=== PATIENT | male | born 1980 | race Caucasian/White ===

== ENCOUNTER 2018-07-16 18:45 | Emergency (ER) | payer OTHER ==
[~2018-07-16] VITALS: Ht 193 cm; Wt 112.4 kg
--- NOTE | 2018-07-16 19:05 | NUR ---
Pt to room and directly to imaging, via gurney.
--- NOTE | 2018-07-16 19:20 | NUR ---
EVENTS AND PROMOTIONS ASSISTANTNora, at bedside to evaluate pt.
--- NOTE | 2018-07-16 19:31 | NUR ---
task RN note: pt presents to ED s/p snowboarding accident in which head injury occurred. pt has no memory of fall or incident, report is from parents who are at bedside. pt is awake, alert and oriented to year, situation, place and person. pt was ambulatory after fall. pt speaking in full, clear sentences. neuro intact, full strength noted to all extremities. no drift, equal grasp bilaterally. pupils equal, round and reactive. call light in reach. parents at bedside. awaiting cspine and head ct results at this time. report to primary RN Nereyda.
[2018-07-16 20:08] LABS: BASOPHILS % (AUTO) 0 % (0-1); EOSINOPHILS # (AUTO) 0.04 x10^3/uL (0-0.4); EOSINOPHILS % (AUTO) 0 % (1-7); LYMPHOCYTES # (AUTO) 1.96 x10^3/uL (1-3.4); LYMPHOCYTES % (AUTO) 16 % (22-44); MD NO; MEAN CORPUSCULAR HGB CONC 34.1 g/dL (33.2-36.2); MEAN PLATELET VOLUME 7.7 fL (7.4-10.4); MONOCYTES # (AUTO) 0.54 x10^3/uL (0.2-0.8); MONOCYTES % (AUTO) 5 % (2-9); NEUTROPHILS # (AUTO) 9.49 x10^3/uL (1.8-6.8); NEUTROPHILS % (AUTO) 79 % (42-75); PLATELET COUNT 275 x10^3/uL (130-400); RED BLOOD COUNT 4.83 x10^6/uL (4.38-5.82); RED CELL DISTRIBUTION WIDTH 13.9 % (9.4-14.8)
--- NOTE | 2018-07-16 20:13 | NUR ---
Dr. Nagel at bedside to discuss ED findings and POC. NSG to be coming in for consult.
[2018-07-16 20:19] LABS: INTERNATIONAL NORMALIZED RATIO 0.97 (0.93-1.1); PROTHROMBIN TIME 10.2 Seconds (9.6-11.5)
[2018-07-16 20:25] LABS: ALANINE AMINOTRANSFERASE 32 U/L (12-78); ALBUMIN 4.3 g/dL (3.4-5.0); ANION GAP 5 mmol/L (5-15); CHLORIDE 111 mmol/L (98-107); CREATININE 0.87 mg/dL (0.7-1.3)
[2018-07-16 20:27] LABS: ALKALINE PHOSPHATASE 44 U/L (45-117); BILIRUBIN,TOTAL 1.2 mg/dL (0.2-1.0); TOTAL PROTEIN 6.8 g/dL (6.4-8.2)
--- NOTE | 2018-07-16 20:28 | NUR ---
LUNCH BREAK NOTE; NEUROLOGIST AT BEDSIDE.
--- NOTE | 2018-07-16 21:05 | NUR ---
Pt resting on gurgerard, gloria Sanchez ([id number]) pt to be transferred to [facility] (preferred) for further evaluation and likely surgery. Family members remain at bedside.
--- NOTE | 2018-07-16 22:05 | NUR ---
Pt ambulated to bathroom, no assistance required.
--- NOTE | 2018-07-16 22:41 | NUR ---
Telephone report given to Antony, with [facility] transfer center. Pt has been accepted to their facility. Room number: 642 Long Phone number for Floor 6 Long:
--- NOTE | 2018-07-16 22:45 | NUR ---
Antony, [facility] transfer center, requesting to be called with estimated time of patient arrival once known.
--- NOTE | 2018-07-16 23:05 | NUR ---
This RN called [facility] 6 Long floor to give report to the bedside nurse. Per the phone bullet swaging machine adjuster, nurse is unknown at this time and will call for report. [facility] ED phone number given.
--- NOTE | 2018-07-16 23:40 | NUR ---
Sascha contacted for transport to [facility], states that they do not have an aircraft available tonight and referred this RN to [facility].
--- NOTE | 2018-07-16 23:43 | NUR ---
PER KRISTINA AT [facility] THEY HAVE NOT GROUND TRANSPORT TO GO TO [facility] DUE TO SHORT STAFF, [facility] DECLINED DUE TO WEATHER, THEIR FIXED WING IS OUT OF SERVICE. CALLED DOMENICA AT [facility] AND THEY HAVE A COUPLE OF FLIGHTS PENDING SO THEY WON'T BE ABLE TO TAKE HIM ANY TIME SOON. CALLED [facility] AND LEFT A MESSAGE TO HELP WITH TRANSPORT
--- NOTE | 2018-07-16 23:44 | NUR ---
CHANCE, FROM [facility], STATES THAT THEY ARE UNABLE TO DO AN AIR TRANSPORT TONIGHT, [facility] PHONE NUMBER [phone] AND CHANCE TO CALL BACK IF SHE IS ABLE TO MAKE ARRANGEMENTS.
--- NOTE | 2018-07-16 23:49 | NUR ---
CALLED [facility], SPOKE TO MARY BETH, REQUEST WAS MADE TO SEE IF [facility] WOULD BE WILLING TO TRANSPORT THE PT TO [facility] THEY HAVE AN AMBULANCE AND TED IS CURRENTLY REFUSING. HE STATES HE WILL SPEAK WITH THE ALTERNATIVE FINANCING SPECIALIST AND HAVE HIM CALL US BACK WITH A DECISION.
--- NOTE | 2018-07-16 23:55 | NUR ---
KAREN FROM [facility] CALLED BACK AND THEY ARE ACCEPTING THE PT ETA IS [phone]
[2018-07-17] MEDS ORDERED: SODIUM CHLORIDE 0.9% 1,000 ML IV ONE
--- NOTE | 2018-07-17 | NUR ---
JAYE, FROM [facility], CALLED REGARDING REQUEST TO TRANSFER PT VIA [facility]. JAYE STATES THAT THEY ARE UNABLE TO TRANSPORT THE PT.
--- NOTE | 2018-07-17 00:05 | NUR ---
Telephone SBAR report given to Mony NUNN.
--- NOTE | 2018-07-17 00:10 | NUR ---
Pt awake, resting on gurney, pt made aware of plan to transfer to [facility] via fixed wing. Pt states that his family is already on their way driving to .
--- NOTE | 2018-07-17 01:15 | NUR ---
Pt sleeping on gurney, woke up when RN entered room. Pt aware of plan to start IVF TKO and transport to [facility] via fixed wing at 0145.
[2018-07-17 02:18] VITALS: BP 106/54
--- NOTE | 2018-07-17 02:18 | NUR ---
Flight crew at bedside, SBAR report given to RN, Ty. Neuro assessment done with this RN and Ty. No changes noted.
== END 2018-07-17 03:23 | disposition short-term general hospital (02) ==
LOC: ED 19:40
DX: R41.82 Altered mental status, unspecified (principal); G93.40 Encephalopathy, unspecified; G91.1 Obstructive hydrocephalus
CPT/HCPCS: 36415; 70450; 72125; 80053; 80307; 82140; 85025; 85610; 85730; 96360; 99285; J7030; 96365; 99284